=== PATIENT | male | born 1975 | race African-American/Black ===

== ENCOUNTER 2020-06-16 08:33 | Observation (INO) | payer BC, SELFPAY ==
[2020-06-16] VITALS (16 sets, daily range): BP systolic 110–165; BP diastolic 68–119; PULSE 65–94; RESP 16–22; TEMP 36.1–36.8; O2SAT 97–100; BMI 19.7
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
[2020-06-16 09:49] LABS: Add Urine Microscopic? NO
[2020-06-16 10:03] LABS: Bilirubin Urine Neg (Negative); Blood Urine Neg (Negative); Glucose Urine UA Norm (Normal); Ketones Urine Negative (Negative); Leukocyte Esterase Urine Negative (Negative); Nitrate Urine Negative (Negative); Protein Urine Neg (Negative); Specific Gravity, Urine 1.015 (1.005-1.030); Urine Appearance Clear (CLEAR); Urine Color Yellow (Yellow); Urobilinogen Urine 1 mg/dL (Negative); pH Urine 6.5 (5-7)
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
[2020-06-16] MEDS: sodium chloride 0.9% 1,000 ML 30 ML IV (12:40)
--- NOTE | 2020-06-16 15:16 | PM.PACU ---
PACU note PACU note: spinal starting to wear off Post-Anesthesia Exam: awake and vital signs stable Disposition: admitted
[2020-06-16] MEDS: dextrose 5%-ns + KCl 40 40 MEQ/1,000 ML BAG 70 MEQ IV (16:44)
--- NOTE | 2020-06-16 19:38 | PM.MISC ---
Miscellaneous Note Purpose of Documentation: Postoperative check, night of surgery No significant complaints. Catheter draining well. Denies any severe pain. No severe bleeding. Reviewed intraoperative findings and expectations perioperatively. Hopefully we can discharge him tomorrow without catheter.
[2020-06-16] MEDS: oxyCODONE-APAP 5-325 mg Tablet 1 TAB PO (20:36)
[2020-06-16] MEDS: ceFAZolin 1,000 MG in sodium chloride 0.9% (plus) 50 ML 100 MG IV (22:27)
[2020-06-17] VITALS (10 sets, daily range): BP systolic 125–152; BP diastolic 71–82; PULSE 78–92; RESP 16–20; TEMP 36.4–37.5; O2SAT 97–98
[2020-06-17] MEDS: morphine 4 mg/mL SDV 1 mL 2 MG IVP ×2 (00:39→05:08)
[2020-06-17 02:53] LABS: Basophils % 0.2 %; Eosinophils # 0.1 10^3/uL (0.0-0.8); Eosinophils % 0.6 %; Hematocrit 36.7 % (42.0-52.0); Hemoglobin 11.4 g/dL (11.7-16.6); Lymphocytes # 1.9 10^3/uL (0.8-4.8); Mean Corpuscular HGB Conc 31.1 g/dL (30.0-36.0); Mean Corpuscular Hemoglobin 28.4 pg (28.0-34.0); Mean Corpuscular Volume 91.5 fL (80-94); Mean Platelet Volume 10.2 fL (7.4-10.4); Monocytes # 1.6 10^3/uL (0.2-0.9); Neutrophils # 12.45 10^3/uL (1.8-7.7); Neutrophils % 76.8 %; Nucleated Red Blood Cells % 0 %; Platelet Count 246 10^3/cmm (130-400); Red Blood Count 4.01 10^6/uL (4.1-5.3); White Blood Count 16.2 10^3/uL (4.0-10.0)
[2020-06-17 03:16] LABS: Anion Gap 9.4 (5-19); Blood Urea Nitrogen 7 mg/dL (6-20); Carbon Dioxide 28 mmol/L (22-29); Chloride 107 mmol/L (98-107); Glomerular Filtration Rate 148.2 mL/min (90-130); Glucose 130 mg/dL (65-115); Osmolality Calculated 290 mOsm/kg (285-295); Potassium 4.4 mmol/L (3.5-5.1); Sodium 140 mmol/L (136-145)
[2020-06-17] MEDS: ceFAZolin 1,000 MG in sodium chloride 0.9% (plus) 50 ML 50 MG IV (05:09)
--- NOTE | 2020-06-17 05:35 | PC.NURSE ---
time temp hr rr o2 bp 2225 98.2 94 16 97 152/82 0225 97.6 91 17 97 144/71
--- NOTE | 2020-06-17 06:42 | ANE.PACU2 ---
Inpatient post-anesthesia follow up: Airway intact: Yes Vital signs: Temperature 97.8 F Pulse Rate 78 Respiratory Rate 20 Blood Pressure 134/74 Pulse Oximetry 97 Oxygen Delivery Me thod Room Air Oxygen Flow Rate 8 Fraction of Inspir ed Oxygen Hydration adequate: Yes Nausea and vomiting: No Pain level: 2 Mental status: Baseline Additional Comments: No signs of infection at neuraxial site, patient up and walking without lower extremity numbness or weakness, no headache. Patient still has carvajal in. Informed patient if he does not urinate after carvajal removed that it could be related to residual spinal and that he would need to return to ER for urinary retention.
[2020-06-17] MEDS: oxyCODONE-APAP 5-325 mg Tablet 1 TAB PO ×2 (08:31→15:31)
[2020-06-17] MEDS: dextrose 5%-ns + KCl 40 40 MEQ/1,000 ML BAG 70 MEQ IV (08:35)
--- NOTE | 2020-06-17 11:56 | PC.CHAP ---
Pastoral Care Encounter/Spiritual Assessment Type of Contact [] Declined management planner visit [] Patient/Family/Request visit [] Outpatient visit [] Follow-up visit [] Physician referral [] Code/Alert [X] Routine visit [] Staff referral [] Actively dying [] Patient sleeping [] Family support [] [] Out of room [] Palliative care [] [] Receiving care in room [] Pre-surgical visit [] Trauma [] Long length of stay [] ICU visit [] Other: Relational/Emotional Strength [] Patient feels connected with others/family/visitors/staff [] Distress [] Loneliness/isolation [] Abandonment Spirituality of Patient [] Person of Lauren [] Attends Jehovah[employer] Witness of their Lauren [] Believes in Prayer [] Reads Bible or Judaism materials [] There are Spiritual issues to be addressed [place] Boss Interventions [X] Prayer [] Active listening [] Non-anxious presence [] Spiritual/emotional support [] Crisis/trauma care [] Spiritual counseling [] Bereavement support [] Provided bereavement packet [] Provided Bible/devotional materials [] Provided toy/stuffed animal, coloring book to patient or family member [] Provided Communion [] Anointing/[place] [] Salvation [] Completed spiritual assessment [] Other: Impact on Illness or Injury [] Angry [] Fearful [] Anxious [] Often cries [] Exhaustion [] Unable to work [] Unable to attend mormonism [] Unable to walk/stand [] Unable to read [] Unable to drive [] Unable to eat/drink [] Unable to sleep [] Unable to be with family [] Patient intubated [] Other: Summary Time spent with patient
--- NOTE | 2020-06-17 12:54 | PC.NURSE ---
carvajal catheter removed by Dr Younger.
--- NOTE | 2020-06-17 14:19 | PC.NURSE ---
patient able to urinate 300ml in urinal. Dr Younger notified.
--- NOTE | 2020-06-17 17:03 | P.DS_ITS ---
Discharge Providers Date of Admission: 06/16/20 14:50 Date of Discharge: June 17, 2020 Attending Provider at Admission: Dick Younger MD Attending Provider at Discharge: Dick Younger MD Diagnoses at Discharge Discharge Diagnosis (1) Penile fracture: Status: Acute Problem details: Severe corpora cavernosa tear related to penile fracture during intercourse. Involve the right corpora cavernosa at the base. Qualifiers: Encounter type: initial encounter Qualified Code(s): S39.840A - Fracture of corpus cavernosum penis, initial encounter Reason for Visit Reason for Visit: GROIN PAIN Hospital Course Discharge Summary: He was seen in the emergency department and taken emergently to the operating room for penile fracture repair. Intraoperative findings included a large rent in the right corporal cavernosal body laterally while away from the urethra at the base of the corpora cavernosa penoscrotal junction area. He was observed overnight due to fairly significant bleeding associated with this injury even some immediately after initial repair requiring an additional hzenoo-su-cfoua suture. Postoperatively he did well. Dressing was changed on postoperative day #1. There was no active bleeding. Typical swelling. No evidence of active infection. His white blood cell count on postoperative day #1 early a.m. was 16.2. Antibiotics were continued because of that despite no physical findings consistent with an active wound or skin infection. Villalpando catheter was maintained postoperatively but removed on postoperative day #1 and he voided spontaneously with good emptying. He was felt to be a candidate for further convalescence at home and was discharged in the evening of postoperative day #1. Explicit instructions were given to him to avoid further injury. No sexual activity for 6 to 8 weeks, no lifting >10 pounds, take the antibiotic prescribed, and follow-up in 2 days for postop wound check. Physical Exam Const: COMMON NORMALS: no acute distress and alert : BLADDER/KIDNEY EXAM: Yes bladder normal to palpation SCROTUM: Yes testes descended bilaterally and No Scrotal tenderness present TESTES: No testicular mass OTHER: Some overall reduce swelling of the penis. No significant oozing from the suture line. No evidence of active infection. Did have some urethral discharge after catheter was removed. Consistent with inflammatory change. Neuro: SENSORIUM/ORIENTATION: Yes alert Psych: COMMON NORMALS: mental status grossly normal, Normal thought process present and cooperative ATTITUDE: Yes calm and Yes engaged THOUGHT PROCESS: Normal thought process present Urinary Catheter Management^: Villalpando: Cath Placed During This Visit: yes, but has since been removed by the nurse Reason for Continuing Indwelling Catheter: Decision to DC Catheter Urinary Catheter Date of Insertion: 06/16/20 Urinary Catheter Time of Insertion: 13:10 Date Urinary Catheter Removed: 06/17/20 Time Urinary Catheter Discontinued: 12:54 Discharge Data Data Completed and Pending: Labs from last 24 hours 06/17/20 06/17/20 02:23 02:23 WBC 16.2 H RBC 4.01 L Hgb 11.4 L Hct 36.7 L MCV 91.5 MCH 28.4 MCHC 31.1 RDW 13.0 Plt Count 246 MPV 10.2 Neut % (Auto) 76.8 Lymph % (Auto) 12.0 Reagan % (Auto) 10.0 Eos % (Auto) 0.6 Baso % (Auto) 0.2 Neut # (Auto) 12.45 H Lymph # (Auto) 1.9 Reagan # (Auto) 1.6 H Eos # (Auto) 0.1 Baso # (Auto) 0.0 Nucleated RBC % (a uto) 0 Nucleated RBCs # 0.0 Sodium 140 Potassium 4.4 Chloride 107 Carbon Dioxide 28 Anion Gap 9.4 BUN 7 Creatinine 0.7 GFR Calculation 148.2 H Glucose 130 H Calculated Osmolal ity 290 Calcium 8.0 L Vitals: Last Vital Signs Temp 99.5 F 06/17/20 15:43 Pulse 78 06/17/20 15:43 Resp 20 H 06/17/20 15:43 BP 139/80 06/17/20 15:43 Pulse Ox 98 06/17/20 15:43 Discharge Plan Discharge Patient Disposition: Home Condition: Stable Prescriptions: [place] 5-325 mg tablet 1 tab PO Q8H PRN (Reason: pain) Qty: 10 RF: 0 levofloxacin 500 mg tablet 500 mg PO DAILY 7 Days Qty: 7 RF: 0 Held Aleve 220 mg Tablet 440 mg PO PRN RF: 0 Hold Instructions: Resume on 06/25/20. Discharge Orders: Discharge Order (Routine); Ordered 06/16/20 Ordered By: Dick Younger Referrals: Dick Younger MD [Physician] - 06/19/20 (Postop wound check.) Discharge Diet: Usual diet Discharge Activity: Limit activity as instructed Activity Restrictions/Additional Instructions: 1. Maintain the dressing in place until I evaluate you on follow-up in my office on Monday. If it becomes significantly painful you can loosen the dressing by unwinding the tape and then replacing it more loosely. 2. You [place] a [place] for pain medication and an antibiotic [place] [facility] [place] The antibiotic, Levaquin is important to take to help reduce the risk of infection. 3. Please call for increasing bleeding or pain. 4. It is absolutely essential to not have any sexual activity for at least 6 weeks to 8 weeks. Doing so will dramatically increase your long-term risk of erectile dysfunction and curvature. 5. No lifting >10 pounds for least a week Discharge Attestations Time Spent in Discharge Care*: less than 30 min Quality Metrics Clinical Quality Measures During this hospital stay, did patient experience: None Coding Level of Care Code Acute Lan Support Specialist for Humphrey Escobedo Diagnoses Penile fracture S39.840A Encounter type: initial encounter
--- NOTE | 2020-06-17 17:42 | PC.NURSE ---
Patient urinated, bladder scan shows 0 in bladder after urination. patient and family verbalized understanding of instructions. iv discontinued. iv catheter intact. patient walked to private vehicle by staff.
== END 2020-06-17 17:50 | disposition home or self-care (01) ==
LOC: ER 11:05 → OPS 12:06 → MEDSURG 14:51
PROVIDERS: Admitting Provider Urology; Emergency Provider Nurse Practitioner Family; Visit Provider Urology
PROC: (CPT 54440; 2020-06-16 12:00)
DX: S39.840A Fracture of corpus cavernosum penis, initial encounter (principal); X58.XXXA Exposure to other specified factors, initial encounter; Z90.49 Acquired absence of other specified parts of digestive tract
CPT/HCPCS: 54437; 12345; 36415; 80048; 81003; 85025; 96361; 96365; 99282; 99285; G0378; J0690; J2250; J2270; J2704; J3010; J7030